=== PATIENT | female | born 1955 | race Caucasian/White ===

== ENCOUNTER 2019-05-16 14:24 | Emergency (ER) | payer OTHER ==
[~2019-05-16] VITALS: Ht 162.6 cm; Wt 95.3 kg
[~2019-05-16 14:24] MED LIST: ACIPHEX20 MG PO; DHA100 MG PO; FOLIC ACID1 MG PO; LEVOCETIRIZINE D5 MG PO; NASONEX17 GM; PROBIOTIC & AC1 EACH PO; VITAMIN B-12250 MCG PO; VITAMIN B-6100 MG PO
--- OUTSIDE RECORDS SUMMARY | 2019-05-16 14:27 | XMS REPORT | Summary of Care ---
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 Name Role Phone PAM LEO DO Unavailable Unavailable Functional Status Name Dates Details Functional status health issues are not documented Status: Name Dates Details Cognitive status health issues are not documented Status: Problems Name Dates Details Active medical history not documented Status: Medications Name Dates Details Medications not documented Allergies and Adverse Reactions Name Dates Details Allergy history not documented Status: Procedures Procedure Dates Details Procedures not documented Immunization Name Dates Details Immunizations not documented Social History Name Dates Details Unknown if ever smoked Vital Signs Date Test Result Details No Known Vitals to report Results Date Description Value Details [id number] [U] XRAY KNEE 3 VWS LEFT [id number] XR KNEE 3 VWS LEFT Images acquired, not reported on this accession number. [id number] [QLH] CBC (INCLUDES DIFF/PLT) WBC 8.5 {K/CMM} Range: 3.7-10.4 RBC 4.51 {M/CMM} Range: 4.20-5.40 Hgb 11.7 g/dl (Below low threshold) Range: 12.0-16.0 Hct 35.8 % (Below low threshold) Range: 36.0-48.0 MCV 79.5 fL (Below low threshold) Range: 80.0-98.0 MCH 26.1 pg (Below low threshold) Range: 27.0-31.0 MCHC 32.8 g/dl Range: 32.0-36.0 RDW 17.1 % (Above high threshold) Range: 11.5-14.5 Platelet 495 {K/CMM} (Above high threshold) Range: 133-450 Mean Platelet Volume 7.7 fL Range: 7.4-10.4 [id number] [QLH] Differential Segmented Neutrophils 62.7 % Range: 45.0-75.0 Monocytes 7.4 % Range: 2.0-12.0 Lymphocytes 28.3 % Range: 20.0-40.0 Eosinophils 1.2 % Range: 0.0-4.0 Basophils 0.4 % Range: 0.0-1.0 Segs-Bands # 5.4 {K/CMM} Range: 1.5-8.1 Lymphocytes # 2.4 {K/CMM} Range: 1.0-5.5 Monocytes # 0.6 {K/CMM} Range: 0.0-0.8 Eosinophils # 0.1 {K/CMM} Range: 0.0-0.5 Plan of Care Name Dates Details Planned Observations Planned Goals not documented Interventions Provided Labs/Procedures/Imaging* [[facility]] CBC (INCLUDES DIFF/PLT); Done: 28 Jan 2018 Instructions Name Dates Details Instructions not documented Encounters Appointment; CORNELIO WILLIAMSON M.D. Encounter Diagnosis: Problem not documented On: 04-Nov-2017 15:00 Appointment; CORNELIO WILLIAMSON M.D. Encounter Diagnosis: Problem not documented On: 21-Dec-2017 14:00 Appointment; DENZEL MONCADA P.A. Encounter Diagnosis: Problem not documented On: 01-Jan-2018 12:45 Appointment; CORNELIO WILLIAMSON M.D. Encounter Diagnosis: Problem not documented On: 28-Jan-2018 10:15
[2019-05-16] MEDS ORDERED: FAMOTIDINE 20 MG/2 ML VIAL IV ONE (14:35)
[2019-05-16] MEDS ORDERED: ONDANSETRON HCL INJ 2MG/ML 2ML 2 MG/ML VIAL IV ONE (14:35)
[2019-05-16] MEDS ORDERED: SODIUM CHLORIDE 0.9% 1000ML 1,000 ML IV STA (14:35)
[2019-05-16] MEDS ORDERED: ACETAMINOPHEN 325 MG TAB PO ONE (14:35)
[2019-05-16 15:10] LABS: BASOPHILS % 0.5 % (0.0-1.0); EOSINOPHILS # (AUTO) 0.1 (0.0-0.4); EOSINOPHILS % 1.7 % (0.0-6.0); HEMOGLOBIN 10.2 g/dL (12.0-16.0); LYMPHOCYTES # (AUTO) 2.8 (1.0-3.2); LYMPHOCYTES % 37.6 % (18.0-39.1); MEAN CORPUSCULAR HEMOGLOBIN 24.5 pg (28-32); MEAN CORPUSCULAR HGB CONC 30.9 g/dL (31-35); MEAN CORPUSCULAR VOLUME 79.1 fL (81-99); MONOCYTES # (AUTO) 0.5 (0.2-0.8); MONOCYTES % 6.4 % (4.4-11.3); NEUTROPHILS % 53.5 % (38.7-80.0); PLATELET COUNT 373 x10e3/uL (140-360); RED BLOOD COUNT 4.17 x10e6/uL (3.6-5.1); RED CELL DISTRIBUTION WIDTH 15.9 % (11.7-14.4)
[2019-05-16 15:18] LABS: INR 0.9; PROTHROMBIN TIME 12.6 seconds (11.9-14.5)
[2019-05-16 15:19] LABS: PARTIAL THROMBOPLASTIN TIME 24.7 seconds (23.8-35.5)
[2019-05-16 15:29] LABS: ALANINE AMINOTRANSFERASE 28 IU/L (0-55); ALBUMIN 3.7 g/dL (3.5-5.0); ALBUMIN/GLOBULIN RATIO 1.3 (0.8-2.0); ALKALINE PHOSPHATASE 101 IU/L (40-150); ANION GAP 13.7 mmol/L (8-16); BLOOD UREA NITROGEN 11 mg/dL (7-26); BUN/CREATININE RATIO 17 (6-25); CALCIUM 8.8 mg/dL (8.4-10.2); CARBON DIOXIDE 25 mmol/L (22-29); CHLORIDE 100 mmol/L (98-107); CREATINE KINASE 62 IU/L (29-168); CREATININE, SERUM 0.64 mg/dL (0.57-1.11); EST GLOMERULAR FILTRATION RATE > 60 ML/MIN (60-); GLUCOSE 127 mg/dL (74-118); LIPASE 14 U/L (8-78); MAGNESIUM 1.7 MG/DL (1.3-2.1); POTASSIUM 3.7 mmol/L (3.5-5.1); SODIUM 135 mmol/L (136-145)
[2019-05-16 15:29] LABS: BILIRUBIN,URINE NEGATIVE (NEGATIVE); CLARITY,URINE SL CLOUDY (CLEAR); COLOR,URINE YELLOW (YELLOW); KETONES,URINE NEGATIVE (NEGATIVE); LEUKOCYTE ESTERASE ,URINE NEGATIVE (NEGATIVE); NITRITE,URINE NEGATIVE (NEGATIVE); PROTEIN,URINE DIPSTICK NEGATIVE (NEGATIVE); URINE UROBILINOGEN 0.2 mg/dL (0.2 - 1)
[2019-05-16 15:44] LABS: CALCIUM OXALATE CRYSTALS,UR FEW (FEW); EPITHELIAL CELLS,URINE RARE /LPF
--- NOTE | 2019-05-16 16:13 | Diagnostic Imaging Report ---
Chest, 1 view, 05/16/2019. History: Syncope. Comparison: None available. Findings: The cardiomediastinal silhouette and pulmonary vasculature are within normal limits for a portable exam. There is no focal consolidation or pleural effusion. There are no acute osseous or soft tissue abnormalities. Impression: No acute cardiopulmonary abnormality. Signed by: Matt Yoon on 05/16/2019 4:10 PM
--- NOTE | 2019-05-16 17:33 | Diagnostic Imaging Report ---
CT BRAIN WO HISTORY: 63-year-old female with syncopal episode COMPARISON: None. TECHNIQUE: Noncontrast axial scans were obtained from skull base to the vertex. Coronal and sagittal reconstructions obtained from the axial data. One or more of the following dose reduction techniques were used: Automated exposure control, adjustment of the mA and/or kV according to patient size, and/or utilization of iterative reconstruction technique. DISCUSSION: Scalp/Skull: Unremarkable. Brain sulci: Appropriate for patient's age. Ventricles: Normal in size and configuration. No hydrocephalus. Extra-axial spaces: No masses or fluid collections. Parenchyma: Few punctate hypodense foci in the supratentorial white matter are chronic microvascular ischemic changes. No mass, hemorrhage, or large vascular territory acute infarct. Dural sinuses: No abnormal densities. Sellar/Suprasellar region: Intact. No masses. Skull base: Intact. Incidental findings: None. IMPRESSION: 1. No acute intracranial abnormalities. 2. Mild chronic microvascular ischemic changes. This preliminary report was issued by Dr. Chapin Xie M.D. neuroradiology fellow at 1733 hours on 05/16/2019. Signed by: Dr. Koko Aguirre M.D. on 05/16/2019 7:20 PM
[2019-05-16 18:45] VITALS: BP 112/72
== END 2019-05-16 18:46 | disposition home or self-care (01) ==
LOC: ER 14:24
DX: R55 Syncope and collapse (principal); R51 Headache
CPT/HCPCS: 36415; 70450; 71045; 80053; 81001; 82550; 82553; 83690; 83735; 83880; 84484; 85025; 85610; 85730; 86850; 86900; 93005; 99284; J2405; J7030